=== PATIENT | female | born 1950 | race Caucasian/White ===

== ENCOUNTER 2016-06-24 09:14 | Emergency (ER) | payer SELFPAY ==
[~2016-06-24] VITALS: Ht 154.9 cm; Wt 70.0 kg
[2016-06-24 09:22] VITALS: Ht 154.9 cm; Wt 70.0 kg
[2016-06-24] MEDS ORDERED: ONDANSETRON 4 MG INJ IV STA ×2 (12:14→13:37)
[2016-06-24] MEDS ORDERED: LIDOCAINE/MYLANTA 40 ML BTL PO STA (12:14)
[2016-06-24] MEDS ORDERED: SOD CHLORIDE 0.9% 1,000 ML IV STA (12:14)
[2016-06-24] MEDS ORDERED: morphine 2 MG INJ IV STA (12:14)
[2016-06-24 12:36] LABS: ADD SCAN DIFF NO
[2016-06-24 12:38] LABS: BASOPHILS % 0.3 % (0.0-2.0); HEMATOCRIT 42.4 % (37.0-47.0); HEMOGLOBIN 14.6 g/dl (12.0-16.0); LYMPHOCYTES # 0.9 10^3/ul (0.8-2.9); MEAN CORPUSCULAR HEMOGLOBIN 30.9 pg (29.0-33.0); MEAN CORPUSCULAR HGB CONC 34.4 g/dl (32.0-37.0); MEAN CORPUSCULAR VOLUME 89.6 fl (82.0-101.0); MEAN PLATELET VOLUME 10.5 fl (7.4-10.4); MONOCYTE # 0.3 10^3/ul (0.3-0.9); MONOCYTES % 2.6 % (0.0-11.0); NEUTROPHIL # 11.2 10^3/ul (1.6-7.5); NEUTROPHILS % 89.7 % (39.0-77.0); PLATELET COUNT 282 10^3/UL (140-415); RED BLOOD COUNT 4.73 10^6/ul (4.20-5.40); RED CELL DISTRIBUTION WIDTH 13.2 % (11.5-14.5); WHITE BLOOD COUNT 12.5 10^3/ul (4.8-10.8)
[2016-06-24 12:56] LABS: URINE BILIRUBIN (Dip) NEGATIVE (NEGATIVE); URINE BLOOD (Dip) NEGATIVE (NEGATIVE); URINE COLOR LT. YELLOW (YELLOW); URINE GLUCOSE (Dip) NEGATIVE (NEGATIVE); URINE KETONES (Dip) 15 (NEGATIVE); URINE LEUKOCYTE ESTERASE (Dip) NEGATIVE (NEGATIVE); URINE NITRITE (Dip) NEGATIVE (NEGATIVE); URINE UROBILINOGEN (Dip) 0.2 E.U./dL (0.1-1.0)
[2016-06-24 12:59] LABS: ADD UMIC NO; URINE TOTAL PROTEIN (Dip) NEGATIVE (NEGATIVE)
[2016-06-24 13:00] LABS: ALANINE AMINOTRANSFERASE 31 IU/L (13-69); ALBUMIN 4.6 g/dl (3.3-4.9); ALBUMIN/GLOBULIN RATIO 1.12; ALKALINE PHOSPHATASE 122 IU/L (42-121); ANION GAP 12 (8-16); ASPARTATE AMINO TRANSFERASE 35 IU/L (15-46); BILIRUBIN,INDIRECT 0.4 mg/dl (0-1.1); BILIRUBIN,TOTAL 0.4 mg/dl (0.2-1.3); BLOOD UREA NITROGEN 8 mg/dl (7-20); CALCIUM 9.5 mg/dl (8.4-10.2); CARBON DIOXIDE 25 mmol/L (21-31); CHLORIDE 105 mmol/L (97-110); CREATININE 0.66 mg/dl (0.44-1.00); GLUCOSE 132 mg/dl (70-220); POTASSIUM 4.2 mmol/L (3.5-5.1); SODIUM 138 mmol/L (135-144); TOTAL PROTEIN 8.7 g/dl (6.1-8.1)
[2016-06-24 13:20] LABS: TROPONIN-I < 0.012 ng/ml (0.00-0.12)
[2016-06-24] MEDS ORDERED: METOCLOPRAMIDE 10 MG INJ IV ONE (14:00)
--- NOTE | 2016-06-24 14:52 | RADRPT ---
PROCEDURE: CT Abdomen and Pelvis without contrast. CLINICAL INDICATION: Severe upper abdominal pain and vomiting. TECHNIQUE: CT scan of the abdomen and pelvis without contrast was performed on a multidetector hig h-resolution CT scanner. The patient was scanned without intravenous contrast. Coronal and sagittal reformatted images were obtained from the axial source images. Images were reviewed on a high-resol [employer] PACS workstation. One or more of the following dose reduction techniques were used: Automated exposure control, adjustment of the mA and/or kV according to patient size, use of iterative recon struction technique. The total exam CTDI equals 7.92 mGy and the total exam DLP equals 435.12 mGy-c m. COMPARISON: None. FINDINGS: CT abdomen: There is a 5 mm right middle lobe pulmonary nodule. Otherwise, the lung bases are clear. The heart size is normal, without pericardial thickening or effusion. The liver is normal in size and density without focal mass or intrahepatic biliary dilatation. The spleen is normal in size and homogeneous in density. The stomach is grossly unremarkable. The panc reas as visualized is normal. The gallbladder and biliary tree are unremarkable and there is no kathy dence for biliary dilatation. The adrenal glands are symmetric and normal. The kidneys are symmetr ically unremarkable as well. No renal calculus or obstructive uropathy or mass lesion is seen. The aorta is of normal caliber. There is no retroperitoneal lymphadenopathy. The zaid hepatis reg ion is clear. The small bowel and mesentery, as visualized, are unremarkable. CT pelvis: The small bowel loops situated within the pelvis are unremarkable. The pelvic organs are normal. T he pelvic sidewalls and inguinal regions are clear. The sigmoid colon and rectum are unremarkable. The appendix is normal. No mass, lymphadenopathy, or free fluid is seen. No acute inflammation is s een. There is minimal grade 1 anterolisthesis of L4-L5 without evidence of spondylolysis. Facet disease present at L3-S1. No osteolytic or osteoblastic lesion is detected. IMPRESSION: 1. No abdominal or pelvic acute inflammatory process, mass, or lymphadenopathy. 2. Small 5 mm right middle lobe pulmonary nodule, likely postinflammatory nature. If the patient i s at high risk for pulmonary malignancy, follow-up CT chest may be obtained in 12 months. RPTAT: QQ .John Fraga MD, MD Date Time Electronically viewed and signed by .John Fraga MD, MD on 06/24/2016 14:51 .A/
[2016-06-24] MEDS ORDERED: RANI150T9 PO (15:15)
[2016-06-24] MEDS ORDERED: ONDA4TAB11 PO (15:15)
--- NOTE | 2016-06-24 15:28 | ERD ---
ER Documentation Chief Complaint Date/Time DATE: 06/24/16 TIME: 15:24 Chief Complaint AP TODAY ROS All systems reviewed and are negative except as per history of present illness. Medications Home Meds Active Scripts Ondansetron (Zofran Odt) 4 Mg Tab.rapdis, 4 MG PO Q6, #10 Prov:JOSE DAMON DO 06/24/16 Ranitidine Hcl* (Zantac*) 150 Mg Tablet, 150 MG PO BID Y for EPIGASTRIC PAIN, # 30 TAB Prov:JOSE DAMON DO 06/24/16 Allergies Allergies: Coded Allergies: No Known Allergy (Unverified , 07/12/14) PMhx/Soc Medical and Surgical Hx: pt denies Medical Hx, pt denies Surgical Hx Hx Alcohol Use: No Hx Substance Use: No Hx Tobacco Use: No Smoking Status: Unknown if ever smoked Physical Exam Vitals Vital Signs Date Time Temp Pulse Resp B/P Pulse Ox O2 Delivery O2 Flow Rate FiO2 06/24/16 09:22 97.9 69 18 130/58 99 Physical Exam Const: [] Head: Atraumatic Eyes: Normal Conjunctiva ENT: Normal External Ears, Nose and Mouth. Neck: Full range of motion..~ No meningismus. Resp: Clear to auscultation bilaterally Cardio: Regular rate and rhythm, no murmurs Abd: Soft, non tender, non distended. Normal bowel sounds Skin: No petechiae or rashes Back: No midline or flank tenderness Ext: No cyanosis, or edema Neur: Awake and alert Psych: Normal Mood and Affect Result Diagram: 06/24/16 1225 06/24/16 1225 Results 24 hrs Laboratory Tests Test 06/24/16 12:25 White Blood Count 12.510^3/ul Red Blood Count 4.7310^6/ul Hemoglobin 14.6g/dl Hematocrit 42.4% Mean Corpuscular Volume 89.6fl Mean Corpuscular Hemoglobin 30.9pg Mean Corpuscular Hemoglobin Concent 34.4g/dl Red Cell Distribution Width 13.2% Platelet Count 63312^3/UL Mean Platelet Volume 10.5fl Neutrophils % 89.7% Lymphocytes % 7.0% Monocytes % 2.6% Eosinophils % 0.0% Basophils % 0.3% Nucleated Red Blood Cells % 0.0/100WBC Neutrophils # 11.210^3/ul Lymphocytes # 0.910^3/ul Monocytes # 0.310^3/ul Eosinophils # 0.010^3/ul Basophils # 0.010^3/ul Nucleated Red Blood Cells # 0.010^3/ul Urine Color LT. YELLOW Urine Clarity CLEAR Urine pH 7.5 Urine Specific [place] 1.010 Urine Ketones 15 Urine Nitrite NEGATIVE Urine Bilirubin NEGATIVE Urine Urobilinogen 0.2 E.U./dL Urine Leukocyte Esterase NEGATIVE Urine Hemoglobin NEGATIVE Urine Glucose NEGATIVE% Urine Total Protein NEGATIVE Sodium Level 138mmol/L Potassium Level 4.2mmol/L Chloride Level 105mmol/L Carbon Dioxide Level 25mmol/L Anion Gap 12 Blood Urea Nitrogen 8mg/dl Creatinine 0.66mg/dl Glucose Level 132mg/dl Calcium Level 9.5mg/dl Total Bilirubin 0.4mg/dl Direct Bilirubin 0.00mg/dl Indirect Bilirubin 0.4mg/dl Aspartate Amino Transf (AST/SGOT) 35IU/L Alanine Aminotransferase (ALT/SGPT) 31IU/L Alkaline Phosphatase 122IU/L Troponin I < 0.012ng/ml Total Protein 8.7g/dl Albumin 4.6g/dl Globulin 4.10g/dl Albumin/Globulin Ratio 1.12 Lipase 98U/L Current Medications Medications (Trade) Dose Ordered Sig/Isaac Route PRN Reason Start Time Stop Time Status Last Admin Dose Admin Sodium Chloride (NS) 1,000 ml @ 1,000 mls/hr Q1H STAT IV 06/24/16 12:14 06/24/16 13:13 DC 06/24/16 12:40 Morphine Sulfate (morphine) 2 mg ONCE STAT IV 06/24/16 12:14 06/24/16 12:15 DC 06/24/16 12:40 Ondansetron HCl (Zofran Inj) 4 mg ONCE STAT IV 06/24/16 12:14 06/24/16 12:15 DC 06/24/16 12:39 Miscellaneous Medication (Gi Cocktail (2)) 40 ml ONCE STAT PO 06/24/16 12:14 06/24/16 12:15 DC 06/24/16 12:40 Metoclopramide HCl (Reglan) 10 mg ONCE ONCE IV 06/24/16 14:00 06/24/16 14:01 DC 06/24/16 13:42 Ondansetron HCl (Zofran Inj) 4 mg ONCE STAT IV 06/24/16 13:37 06/24/16 13:39 DC 06/24/16 13:42 Procedures/MDM Viral gastritis versus ulcerative gastritis and 66-year-old female. She was told she had a history of gastritis before. Very slightly elevated white count with no signs of bacterial infection or urinary tract infection. Patient is feeling much better in the emergency room she felt somewhat better after a small dose of morphine. She was given Zofran and Reglan for nausea. After she had her nausea resolved she is able to take a GI cocktail which made her feel much much better. Vomiting may be a result of ulcerative gastritis but could also be intestinal viral infection. No acute emergencies identified. I am going to discharge with primary care follow-up the next few days as well as a referral for fire protection engineer. No signs of acute ischemia on EKG and negative troponin. Also given her CT report with the pulmonary nodule instructed to follow-up with Dr. Almaguer on Monday. Return precautions to the ER also given. Discharging with Zantac and Zofran ODT. EKG interpretation: Normal sinus rhythm rate of 69, indeterminate axis, no ST or T-wave changes concerning for acute ischemia. QT 473. CT abdomen pelvis interpretation: There is a lung nodule found. I see no acute intra-abdominal process, no obstruction, no free air, no abnormal fat stranding , no fractures. Departure Diagnosis: Primary Impression: Acute abdomen Condition: Stable Patient Instructions: Gastritis (Adult), Gastritis Vs. Ulcer, Vomiting (6Y- Adult) Additional Instructions: Llame al doctor MAANA y deangelo eileen ROWAN PARA DENTRO DE 2-3 LI. Consigue un referral para un GASTRONENTEROLOGO para un ENT. Dgale a la secretaria que nosotros le instruimos hacer esta rowan.Avise o llame si kauffman condicin se empeora antes de la rowan. Regresa aqui si peor o no mejor. JOSE DAMON DO Jun 24, 2016 15:28
[2016-06-24 16:53] VITALS: BP 100/56; PULSE 78
== END 2016-06-24 16:54 | disposition home or self-care (01) ==
LOC: E/R 09:14
DX: R10.0 Acute abdomen (principal)
CPT/HCPCS: 74176; 80053; 81003; 83690; 84484; 85025; 93005; J2270; J2405; J2765; J7030; 36415; 96374; 96375

== ENCOUNTER 2016-12-16 13:45 | Emergency (ER) | payer MEDICARE, BC ==
[~2016-12-16] VITALS: Ht 167.6 cm; Wt 51.5 kg
[~2016-12-16 13:45] MED LIST: ONDA4TAB11 PO; RANI150T9 PO
[2016-12-16 13:52] VITALS: Ht 167.6 cm; Wt 51.5 kg
[2016-12-16] MEDS ORDERED: LIDOCAINE 1% (MDV) 20 ML INJ SC ONE (16:00)
--- NOTE | 2016-12-16 18:01 | ERD ---
ER Documentation Chief Complaint Chief Complaint Complains of abscess to the vaginal area HPI 66y/o female c/o pain for 3 days of vulvar pain associated with localized erythema and warmth. The pain is described as dull, rated 7/10. Worsen by movement. Denies fever, no chills no N/V/D. The patient has a history of previous episode ROS All systems reviewed and are negative except as per history of present illness. Medications Home Meds Active Scripts Ibuprofen* (Motrin*) 600 Mg Tab, 600 MG PO Q8, #30 TAB Prov:CAMILO MESSER MD 12/16/16 Doxycycline Hyclate* (Doxycycline Hyclate*) 100 Mg Tablet.dr, 100 MG PO BID for 10 Days, TAB Prov:CAMILO MESSER MD 12/16/16 Ondansetron (Zofran Odt) 4 Mg Tab.rapdis, 4 MG PO Q6, #10 Prov:JOSE DAMON DO 06/24/16 Ranitidine Hcl* (Zantac*) 150 Mg Tablet, 150 MG PO BID Y for EPIGASTRIC PAIN, # 30 TAB Prov:JOSE DAMON DO 06/24/16 Allergies Allergies: Coded Allergies: No Known Allergy (Unverified , 07/12/14) PMhx/Soc Medical and Surgical Hx: pt denies Medical Hx, pt denies Surgical Hx Hx Alcohol Use: No Hx Substance Use: No Hx Tobacco Use: No Smoking Status: Former smoker Physical Exam Vitals Vital Signs Date Time Temp Pulse Resp B/P Pulse Ox O2 Delivery O2 Flow Rate FiO2 12/16/16 18:19 98.7 18 135/77 96 12/16/16 13:52 98.0 81 18 169/77 96 Physical Exam Const: Alert oriented, in no distress Resp: Clear to auscultation bilaterally Cardio: Regular rate and rhythm, no murmurs Abd: Soft, non tender, non distended. Normal bowel sounds Pelvic: External genitalia revealed 4 x 4 centimeter well-defined mass, fluctuant, erythematous, tender to palpation, located on the left labia Results 24 hrs Current Medications Medications (Trade) Dose Ordered Sig/Isaac Route PRN Reason Start Time Stop Time Status Last Admin Dose Admin Lidocaine (Xylocaine 1% (Mdv) 20 ml) 20 ml ONCE ONCE SC 12/16/16 16:00 12/16/16 16:01 DC Procedures/[facility] Word catheter procedure: Risk and benefits discussed with patient, the patient agrees to proceed with the procedure After local anesthesia and sterile preparation with povidone-iodine an incision was made with 11 blade scalpel aprox 1.0-cm deep into the cyst just outside the hymenal ring, a hemostat was inserted to break up loculations, draining approx 20cc of pus, then the Word catheter was placed. The bulb was inflated with 5cc of water and the free end of the catheter was tucked up into the vagina. The patient tolerated well the procedure, no complications. MDM 66-year-old female with a history of a Bartholin abscess, presents with painful mass on the left labia. Physical exam showed large fluctuant mass consistent with a Bartholin's abscess. Differential diagnoses include vulvar skin abscesses, perianal abscess, malignant, inclusion cyst. The patient consented a Word catheter placement, which was inserted successfully without complications. The patient was instructed to follow-up with her doctor in 2-4 days, the catheter should be placed for 4 weeks, pelvic rest recommended. The patient will be discharged home with a prescription for doxycycline for 7 days and anti-inflammatories as needed for pain. Departure Diagnosis: Primary Impression: Infection of Bartholin's gland Condition: Stable Patient Instructions: Bartholin's Cyst (I And D) Comments Please schedule a follow up appointment with your primary doctor in 2 -4 days and bring all the information and prescriptions that we have given to you today. If the doctor is unavailable and the symptoms persist or worsen please return to the emergency department CAMILO MESSER MD Dec 16, 2016 18:01
[2016-12-16] MEDS ORDERED: DOXY100T20 PO (18:09)
[2016-12-16] MEDS ORDERED: IBUP-1542 PO (18:09)
[2016-12-16 18:19] VITALS: BP 135/77; RESP 18; TEMP 98.7
== END 2016-12-16 18:20 | disposition home or self-care (01) ==
LOC: FTE 13:45
DX: N75.1 Abscess of Bartholin's gland (principal); Z87.891 Personal history of nicotine dependence

== ENCOUNTER 2017-01-07 12:13 | Emergency (ER) | payer MEDICARE, BC ==
[~2017-01-07] VITALS: Ht 152.4 cm; Wt 51.5 kg
[~2017-01-07 12:13] MED LIST changes: +DOXY100T20 PO; +IBUP-1542 PO
[2017-01-07 12:16] VITALS: Ht 152.4 cm; Wt 51.5 kg
--- NOTE | 2017-01-07 13:12 | ERD ---
ER Documentation Chief Complaint Chief Complaint Patient here for doherty cath removal/ replacement HPI This is a very pleasant 66-year-old female that presents to the emergency department for removal of her Word catheter that had been placed by her RADIO ELECTRONICS TECHNICIAN four weeks prior to arrival. The patient had a Bartholin's cyst that was drained by Dr. Briceño 4 weeks prior to arrival. She had been placed on antibiotics and indicates she has had no fevers or shaking or chills. She denies any drainage around the catheter site. ROS All systems reviewed and are negative except as per history of present illness. Medications Home Meds Active Scripts Ibuprofen* (Motrin*) 600 Mg Tab, 600 MG PO Q8, #30 TAB Prov:CAMILO MESSER MD 12/16/16 Doxycycline Hyclate* (Doxycycline Hyclate*) 100 Mg Tablet.dr, 100 MG PO BID for 10 Days, TAB Prov:CAMILO MESSER MD 12/16/16 Ondansetron (Zofran Odt) 4 Mg Tab.rapdis, 4 MG PO Q6, #10 Prov:JOSE DAMON DO 06/24/16 Ranitidine Hcl* (Zantac*) 150 Mg Tablet, 150 MG PO BID Y for EPIGASTRIC PAIN, # 30 TAB Prov:JOSE DAMON DO 06/24/16 Allergies Allergies: Coded Allergies: No Known Allergy (Unverified , 07/12/14) PMhx/Soc History of Surgery: No Anesthesia Reaction: No Hx Neurological Disorder: No Hx Respiratory Disorders: No Hx Cardiac Disorders: No Hx Psychiatric Problems: No Hx Miscellaneous Medical Probl: Yes (Bartholin Cyst) Hx Alcohol Use: No Hx Substance Use: No Hx Tobacco Use: No Smoking Status: Never smoker Physical Exam Vitals Vital Signs Date Time Temp Pulse Resp B/P Pulse Ox O2 Delivery O2 Flow Rate FiO2 01/07/17 12:16 97.5 65 20 173/85 97 Physical Exam Constitutional:Well-developed. Well-nourished. Respiratory: Not using accessory muscles of respiration.Lungs were clear to auscultation bilaterally. No rhonchi. No rales. No wheezing. Cardiovascular: Regular rate regular rhythm.No murmurs. No rubs were appreciated.S1, S2 normal. Distal pulses are palpable 2+ bilaterally. : Patient had a word catheter present in the left Bartholin's cyst. No surrounding erythremia warmth tenderness fluctuance or induration. Skin: No petechia, no purpura. No lesions on the palms or the soles of the feet. No maculopapular rash. NEURO: Patient was alert, awake, orientated x3.No facial droop. Gait observed and normal with no ataxia.Speech had regular rate and rhythm. No focal neurological deficits. Procedures/MDM This patient presented to the emergency department for removal of the Word catheter. She had no evidence of surrounding infection. An 18-gauge needle with a 3 cc syringe was placed into the catheter for removal of the saline from the balloon. Afterwards the word catheter was easily removed. There is no purulent drainage from the inoculation site on the vaginal mucosa. No evidence of location and the patient tolerated the procedure well. The patient was discharged home in fair condition. They were instructed to return to the emergency department at any time if there was any worsening of their condition. The patient stated they would follow up with their PCP in the next 24-48 hours to initiate a suitable medication regimen under the care of their PCP as well as to allow their PCP to monitor any drug reactions. The patient was discharged home with prescriptions after they gave informed consent to the new medication. They were also fully informed by myself on the adverse effects and adverse drug interactions in order to provide adequate safeguards to prevent possible adverse reactions to medications. Departure Diagnosis: Primary Impression: Bartholin cyst Condition: Fair Patient Instructions: Bartholin's Cyst (No Infection) Referrals: JOSSY TRINIDAD MD (PCP) REYMUNDO LOWRY Jan 07, 2017 13:12
== END 2017-01-07 14:53 | disposition home or self-care (01) ==
LOC: E/R 12:13
DX: N75.0 Cyst of Bartholin's gland (principal); R40.2142 Coma scale, eyes open, spontaneous, at arrival to emergency department; R40.2252 Coma scale, best verbal response, oriented, at arrival to emergency department; R40.2362 Coma scale, best motor response, obeys commands, at arrival to emergency department
CPT/HCPCS: 99282

== ENCOUNTER 2018-04-19 15:50 | Emergency (ER) | payer OTHER ==
[~2018-04-19] VITALS: Wt 53.0 kg
[~2018-04-19 15:50] MED LIST changes: +RANI150T35 PO; -RANI150T9 PO
[2018-04-19] MEDS ORDERED: LIDOCAINE 1% (MPF) 5 ML VIAL INFIL ONE (23:00)
--- NOTE | 2018-04-19 23:56 | ERD ---
ER Documentation Chief Complaint Chief Complaint PMD ref: bartholin cyst x5d. HPI 67-year-old female presents for a vaginal mass times 5 days. Patient was seen by primary care physician and diagnosed with a Bartholin cyst. Patient was sent to the ED for incision and drainage. Patient has had prior similar symptoms before. She denies any fevers or chills. ROS All systems reviewed and are negative except as per history of present illness. Medications Home Meds Active Scripts Ibuprofen* (Motrin*) 600 Mg Tab, 600 MG PO Q8, #30 TAB Prov:CAMILO MESSER MD 12/16/16 Doxycycline Hyclate* (Doxycycline Hyclate*) 100 Mg Tablet.dr, 100 MG PO BID for 10 Days, TAB Prov:CAMILO MESSER MD 12/16/16 Ondansetron (Zofran Odt) 4 Mg Tab.rapdis, 4 MG PO Q6, #10 Prov:JOSE DAMON DO 06/24/16 Ranitidine Hcl* (Zantac*) 150 Mg Tablet, 150 MG PO BID PRN for EPIGASTRIC PAIN, #30 TAB Prov:JOSE DAMON DO 06/24/16 Allergies Allergies: Coded Allergies: No Known Allergy (Unverified , 07/12/14) PMhx/Soc Medical and Surgical Hx: pt denies Surgical Hx History of Surgery: No Anesthesia Reaction: No Hx Neurological Disorder: No Hx Respiratory Disorders: No Hx Cardiac Disorders: No Hx Psychiatric Problems: No Hx Miscellaneous Medical Probl: Yes (Bartholin Cyst) Hx Alcohol Use: No Hx Substance Use: No Hx Tobacco Use: No Smoking Status: Never smoker Physical Exam Vitals Vital Signs Date Temp Pulse Resp B/P (MAP) Pulse Ox O2 O2 Flow FiO2 Time Delivery Rate 04/19/18 97.2 80 16 171/86 98 16:40 (114) Blood pressure 141/70 on repeat Physical Exam Const: No acute distress Resp: Clear to auscultation bilaterally Cardio: Regular rate and rhythm, no murmurs Abd: Soft, non tender, non distended. Normal bowel sounds Skin: No petechiae or rashes Back: No midline or flank tenderness Ext: No cyanosis, or edema Neur: Awake and alert Psych: Normal Mood and Affect : Vaginal exam done with nursing staff at bedside, there is a mass noted in the left vaginal area with mild fluctuance, no increased warmth in the area Results 24 hrs Current Medications Medications Dose Sig/Isaac Start Time Status Last (Trade) Ordered Route PRN Stop Time Admin Dose Reason Admin Lidocaine 5 ml ONCE ONCE 04/19/18 DC (Xylocaine INFIL 23:00 1% (Mpf)) 04/19/18 23:01 Procedures/MDM Incision and Drainage with irrigation by me: Location: Left vaginal area Anesthesia: Local 1% Lidocaine without epinephrine Technique: Irrigated. Small amount of clear fluid expressed from the area Packing: None Complications: Neurovascularly intact post procedure 48 hour wound check. Scar minimization instructions given. Patient's skin symptoms have stabilized while they have been evaluated in the department and are appropriate for outpatient care and work up. Exam and w/u not consistent w/ sepsis, deep space infection, or foreign body. Medical Decision Making: Differential diagnosis includes but not limited to Bartholin cyst, Bartholin's abscess, lipoma Patient appeared well on physical exam. Vaginal examination revealed a small 0.25 cm mass with underlying mild fluctuance, no increased warmth noted Incision and drainage was attempted, see procedure note above Patient was continue with Motrin and Tylenol at home. Advised that she may need to see THERAPEUTIC SALES SPECIALIST if the vaginal mass does not improve. Patient advised to follow up with PCP in 1-2 days. Patient advised to return to ED for new or worsening symptoms. Patient stable on discharge from the ED. Disclaimer: Inadvertent spelling and grammatical errors are likely due to EHR/dictation software use and do not reflect on the overall quality of patient care. Also, please note that the electronic time recorded on this note does not necessarily reflect the actual time of the patient encounter. Departure Diagnosis: Primary Impression: Bartholin cyst Condition: Fair Patient Instructions: Bartholin's Cyst (No Infection) Referrals: JOSSY TRINIDAD MD (PCP) THERAPEUTIC SALES SPECIALIST [place] [id number] [facility] [address] [place] [id number] OFFICE FAX KAY NINA [address] [place] [address] [facility] [address] [place], [place] [id number] DR CHAMPION, HESHMAT [address] [facility], [address], [place] [address] DR SO, [facility] [address] [facility], [place] [address] [facility] [address] [place] [address] [phone] [facility], [facility] [id number] - [address] HYDE, KINGSLEY [address], [facility] [address] [address] AGUILAR, HIREN [address] [facility]. [address], [place] [address] DR BENTON, FARID [address] [place], [place] [id number] Additional Instructions: Call your primary care doctor TOMORROW for an appointment during the next 1-2 days.See the doctor sooner or return here if your condition worsens before your appointment time. Llame al doctor MAANA y deangelo eileen ROWAN PARA DENTRO DE 1-2 LI.Dgale a la secretaria que nosotros le instruimos hacer esta rowan.Avise o llame si kauffman condicin se empeora antes de la rowan. Regresa aqui si peor o no mejor. MARCOS ALMANZA DO Apr 19, 2018 23:55
[2018-04-20 00:10] VITALS: BP 141/70; PULSE 63; RESP 18
== END 2018-04-20 00:11 | disposition home or self-care (01) ==
LOC: FTE 15:50
DX: N75.0 Cyst of Bartholin's gland (principal)